=== PATIENT | female | born 1940 | race Caucasian/White ===

== ENCOUNTER 2019-03-20 08:27 | Emergency (ER) | payer MEDICARE ==
[2019-03-20 08:43] VITALS: BP 133/67
--- NOTE | 2019-03-20 09:08 | UC ---
Skin Complaint HPI - HPI Summary HPI Summary: Started about 4 days ago with red itchy bumps on inner left thigh. Today now it is spreading down her left leg to her knee. States the bumps on her knee are painful and has been having pain in her left hip as well that she is unsure if that is connected to the rash or not. Patient believes it may be shingles. - History of Current Complaint Chief Complaint: UCSkin Time Seen by Provider: 03/20/19 08:49 Stated Complaint: SKIN COMPLAINT Hx Obtained From: Patient Hx Last Menstrual Period: n/a ?: No Onset/Duration: Sudden Onset, Lasting Days Skin Exposure Onset/Duration: Days Ago Timing: Constant Onset Severity: Mild Current Severity: Mild Pain Intensity: 2 - Allergy/Home Medications Allergies/Adverse Reactions: Allergies Allergy/AdvReac Type Severity Reaction Status Date / Time No Known Allergies Allergy Verified 03/20/19 08:47 Home Medications: Home Medications Acetaminophen TAB* [Tylenol TAB*] 500 mg PO DAILY 03/20/19 [History Confirmed ] Chlorthalidone TAB* [Hygroton TAB*] 25 mg PO DAILY 03/20/19 [History Confirmed 03/20/19] Cyanocobalamin TAB* [Vitamin B12 TAB*] 500 mcg PO DAILY 03/20/19 [History Confirmed 03/20/19] PMH/Surg Hx/FS Hx/Imm Hx Previously Healthy: Yes - Surgical History Surgical History: Yes Surgery Procedure, Year, and Place: 2018-back surgery. 2 , gall bladder. APPENDECTOMY - Family History Known Family History: Positive: Cardiac Disease, Hypertension, Diabetes - Social History Alcohol Use: Rare Substance Use Type: None Smoking Status (MU): Never Smoked Tobacco - Immunization History Most Recent Influenza Vaccination: none Review of Systems All Other Systems Reviewed And Are Negative: Yes Skin: Positive: Rash Is Patient Immunocompromised?: No Physical Exam Triage Information Reviewed: Yes Appearance: Well-Appearing, Well-Nourished, Pain Distress Vital Signs: Initial Vital Signs Temp 97.9 F 03/20/19 08:37 Pulse 100 03/20/19 08:37 Resp 18 03/20/19 08:37 BP 133/67 03/20/19 08:37 Pulse Ox 100 03/20/19 08:37 Vital Signs Reviewed: Yes Eye Exam: Normal ENT Exam: Normal Respiratory Exam: Normal Cardiovascular Exam: Normal Skin: Positive: Rashes - MULTIPLE ERYTHEMIC AREAS ON INSIDE OF LEFT THIGH, SOME OF THE AREAS HAVE FLUID FILLED VESICLES Course/Dx - Course Course Of Treatment: HX OBTAINED, EXAM PERFORMED ,MEDS REVIEWED, TREATED FOR SHINGLES - Differential Diagnoses - Skin Complaint Differential Diagnoses: Varicella Zoster - Diagnoses Provider Diagnosis: Shingles outbreak Discharge ED - Sign-Out/Discharge Documenting (check all that apply): Patient Departure All imaging exams completed and their final reports reviewed: No Studies - Discharge Plan Condition: Stable Disposition: HOME Prescriptions: ValACYclovir (*) [Valtrex 1 GM(*)] 1 gm PO BID #14 tab Patient Education Materials: Shingles (ED) Referrals: Ranjeet Villalobos MD [Primary Care Provider] - Additional Instructions: 1. TAKE THE MEDICATION PRESCRIBED. 2. ANTI INFLAMMATORIES FOR PAIN 3. ICE CAN SOMETIMES HELP WITH THE PAIN. 4. FOLLOW UP WITH ANY CONCERNING SYMTPOMS - Billing Disposition and Condition Condition: STABLE Disposition: Home
== END 2019-03-20 09:14 | disposition home or self-care (01) ==
LOC: UCCORT 08:27
DX: B02.9 Zoster without complications (principal)
CPT/HCPCS: 99202; G0463